=== PATIENT | female | born 1975 | race Caucasian/White ===

== ENCOUNTER 2023-02-08 18:41 | Emergency (ER) | payer OTHER, SELFPAY ==
--- NOTE | ~2023-02-08 | XR_ITS ---
EXAMINATION: XR chest 2V Exam Date/Time: 02/08/2023 20:42 CDT HISTORY: CP RIGHT SIDE LOWER BACK Comparison: 11/28/2015. RESULT: Lines, tubes, and devices: None. Lungs and pleura: Clear. Cardiomediastinal silhouette: Stable. Other: No acute osseous or upper abdominal finding. IMPRESSION: No acute cardiopulmonary process. Reviewed, dictated and finalized at location [facility].
--- NOTE | ~2023-02-08 | CT_ITS ---
Clinical Indication: Elevated d-dimer, pain CT Scan of the Chest with Contrast: Technique: Contiguous sections were acquired throughout the chest after intravenous administration of 100 cc of Omnipaque 350. Dose reduction technique was used on this scan by utilizing automated expos ure control and iterative reconstruction technique. The dose-length product (DLP) was 1048.48 mGy-cm. Findings: There is no evidence of any significant mediastinal, hilar or axillary lymphadenopathy. There is no f illing defect in the pulmonary arterial tree to suggest pulmonary embolus. There is no evidence of ao rtic dissection or aneurysm. There is no evidence of pleural or pericardial effusion. The lungs are clear. No pulmonary nodules or infiltrates are noted. Images through the upper abdomen reveal no abnormalities. Impression: No evidence of pulmonary embolus, aortic dissection, or aortic aneurysm. Clear lungs. Reviewed, dictated and finalized at [facility]. Impression: No evidence of pulmonary embolus, aortic dissection, or aortic aneurysm. Clear lungs.
[2023-02-08 18:42] VITALS: BP 176/71; PULSE 97; RESP 20; TEMP 36.4; O2SAT 96
[2023-02-08 19:40] VITALS: BP 141/92; PULSE 82; RESP 16; O2SAT 95
--- NOTE | 2023-02-08 20:21 | ECG_ITS ---
Measurements Intervals [place] Rate: 75 P: 66 LA: 169 QRS: 50 QRSD: 121 T: 30 QT: 374 QTc: 420 Interpretive Statements SINUS RHYTHM POOR R-WAVE PROGRESSION BORDERLINE ECG COMPARED TO ECG 12/28/2018 13:29:57 HEART RATE INCREASED NO OTHER DIFFERENCE Electronically Signed On 02-09-2023 7:08:26 CDT by Jose Carrasco M.D.
--- NOTE | 2023-02-08 20:30 | ED.GENADULT ---
HPI - General Adult General Chief complaint: Back Pain/Injury <Moreno Trevino MD - Last Filed: 02/12/23 07:12> Stated complaint: mid back pain, history of pluerisy <Moreno Trevino MD - Last Filed: 02/12/23 07:12> Time Seen by Provider: 02/08/23 19:35 <Moreno Trevino MD - Last Filed: 02/12/23 07:12> History of Present Illness HPI narrative: 47-year-old female presented to the emergency department for evaluation of right back pain that she attributes to being pleurisy. Patient states that she has had pleurisy multiple times before. Patient describes the pain as sharp stabbing pain in the right back that is worsened with deep inspiration and worsened by position. Patient used to be a tobacco smoker but states she does still smoke cannabis. Patient denies any recent coughs colds or fevers. Patient denies any prior history of PE or DVT. Patient is not currently being treated for cancer. Patient denies any long car rides or plane trips. Patient denies any lower extremity pain or swelling. Patient states normally she is able to exercise without inducing any chest pain. <Moreno Trevino MD - Last Filed: 02/12/23 07:12> Related Data Allergies/adverse reactions: Allergies Allergy/AdvReac Type Severity Reaction Status Date / Time BANDAIDS AdvReac Unknown Rash Uncoded 02/08/23 19:42 <Moreno Trevino MD - Last Filed: 02/12/23 07:12> Review of Systems Review of Systems: All systems reviewed & are unremarkable except as noted in HPI and below <Moreno Trevino MD - Last Filed: 02/12/23 07:12> Exam Narrative: APPEARANCE: Well appearing, no pain, no distress, well-nourished. HEAD: normocephalic, atraumatic. EYES: PERRLA/EOMI, conjunctivae clear. NOSE: Normal no drainage NECK: Supple. No adenopathy, no masses. RESPIRATORY: Airway patent, respirations nonlabored. Clear to auscultation bilaterally, no rales, rhonchi, wheezing. CARDIOVASCULAR: Regular rate and rhythm without murmurs rubs or gallops. ABDOMINAL: Soft, nontender, nondistended, normal bowel sounds MUSCULOSKELETAL: Moves all extremities. Strength/ROM intact, No edema, No calf tenderness. NEURO: Alert. Cranial nerves II through XII intact. Grossly intact SKIN: Warm, dry. Normal Color <Moreno Trevino MD - Last Filed: 02/12/23 07:12> Course Course Emergency Course: 47-year-old female with history of pleurisy presented to the emergency department for evaluation of right back pain. EKG is being ordered to rule out for acute MT. Baseline labs are being ordered along with a D-dimer to evaluate for pulmonary embolism. Patient is being ordered Toradol to help with her pleuritic chest pain. On reevaluation patient's chest pain is improved. Patient is resting more comfortably. Patient is afebrile with no leukocytosis. Patient had an elevated D-dimer so a CTA is pending. CMP is within normal limits. Patient had a negative initial troponin. Patient's chest x-ray showed no acute cardiopulmonary process. At time of signout CTA is pending. <Moreno Trevino MD - Last Filed: 02/12/23 07:12> 47-year-old female with history of pleurisy presented to the emergency department for evaluation of right back pain. EKG is being ordered to rule out for acute MT. Baseline labs are being ordered along with a D-dimer to evaluate for pulmonary embolism. Patient is being ordered Toradol to help with her pleuritic chest pain. On reevaluation patient's chest pain is improved. Patient is resting more comfortably. Patient is afebrile with no leukocytosis. Patient had an elevated D-dimer so a CTA is pending. CMP is within normal limits. Patient had a negative initial troponin. Patient's chest x-ray showed no acute cardiopulmonary process. At time of signout CTA is pending. WERNER [id number]: CT was negative for pulmonary embolism. patient was discharged. <Mitul Molina MD - Last Filed: 02/08/23 23:23> Vital Signs Vital signs: V
[2023-02-08] MEDS: KETOROLAC 15 MG/ML VIAL (*BKC) IV PUSH (20:46)
[2023-02-08 20:55] LABS: Basophils Absolute Auto 0.1 K/mm3 (0.0-0.1); Basophils Percent Auto 0.7 % (0.2-1.2); Eosinophils Absolute Auto 0.1 K/mm3 (0-0.3); Eosinophils Percent Auto 1.1 % (0-4.4); Hematocrit 48.2 % (37.0-47.0); Hemoglobin 15.9 g/dL (12.0-15.0); Immature Granulocyte Absolute 0.02 K/mm3 (0.00-0.031); Immature Granulocyte Percent A 0.2 % (0-0.5); Lymphocytes Absolute Auto 2.37 K/mm3 (0.9-3.2); Lymphocytes Percent Auto 26.6 % (18.3-44.2); Mean Platelet Volume 10.4 fl (7.4-10.4); Monocytes Absolute Auto 0.7 K/mm3 (0.1-0.6); Monocytes Percent Auto 7.9 % (2.6-8.5); Neutrophils Absolute Auto 5.7 K/mm3 (1.3-6.7); Neutrophils Percent Auto 63.5 % (45.5-73.1); Platelet Count Result 246 k/mm3 (150-375); Red Blood Count 5.13 M/mm3 (4.2-5.4); Red Cell Distribution Width 12.9 % (11.5-14.5); White Blood Count 8.9 K/mm3 (4.5-10.0)
[2023-02-08 21:06] LABS: Alanine Aminotransferase 21 U/L (6-35); Albumin Level 4.3 g/dL (3.5-5.1); Alkaline Phosphatase 68 U/L (38-126); Anion Gap 4 mmol/L (8-16); Aspartate Amino Transferase 19 U/L (14-36); Bilirubin,Total 0.5 mg/dL (0.2-1.3); Blood Urea Nitrogen 21 mg/dL (7-17); Carbon Dioxide 28 mmol/L (22-30); Chloride 104 mmol/L (98-107); Estimated CRCL calculation 133 ml/min; Estimated Glomerular Filt Rate > 60; Glucose 102 mg/dL (65-110); Sodium 136 mmol/L (137-145)
[2023-02-08 21:16] LABS: Troponin I < 0.012 ng/mL (0.000-0.034)
[2023-02-08 21:50] VITALS: PULSE 77; RESP 20; O2SAT 95
[2023-02-08 22:30] VITALS: BP 147/65; PULSE 67; RESP 17; O2SAT 96
[2023-02-08 23:30] VITALS: BP 128/67; PULSE 77; RESP 21; O2SAT 96
== END 2023-02-08 23:34 | disposition home or self-care (01) ==
PROVIDERS: Emergency Medicine; Emergency Provider Emergency Medicine; PCP Physician Assistant
DX: J90 Pleural effusion, not elsewhere classified (principal)
CPT/HCPCS: 36415; 71046; 71275; 80053; 84484; 85025; 85380; 93005; 96374; 99284; J1885; Q9967